=== PATIENT | male | born 1990 | race Asian ===

== ENCOUNTER 2024-04-23 07:27 | Inpatient (IN) | payer SELFPAY ==
[2024-04-23] MEDS ORDERED: Morphine 4 MG/ML VIAL ONE (08:28)
[2024-04-23] MEDS ORDERED: Ondansetron PF 4 MG/2 ML Vial ONE (08:28)
[2024-04-23] MEDS ORDERED: Pantoprazole 40 MG VIAL ONE (08:28)
[2024-04-23] MEDS ORDERED: Pantoprazole 80 MG, Admixture Fee 1 EACH in Sodium Chloride 0.9% 100 ML IVPB SCH (08:30)
[2024-04-23 09:49] LABS: Anion Gap 17 mmol/L (10-20); BUN (Urea Nitrogen) 88 mg/dL (8.9-20.6); Calc. Creatinine Clearance 0 mL/min (70-130); Carbon Dioxide 21 mmol/L (22-29); Chloride 109 mmol/L (98-107); Estimated GFR 70; Glucose 98 mg/dL (70-105); Potassium 3.7 mmol/L (3.5-5.1); Sodium 143 mmol/L (136-145)
[2024-04-23 09:57] LABS: #Basophils Less than 0.03 10x3/uL (0.0-0.2); %Eosinophils 0.8 % (0.0-10.0); %Lymphocytes 23.3 % (21.0-51.0); %Monocytes 9.7 % (0.0-10.0); %Neutrophils 65.3 % (42.0-75.0); Hematocrit 7.2 % (42.0-52.0); Hemoglobin 2.3 g/dL (14.0-18.0); Mean Corpuscular HGB CONC 31.9 g/dL (32.0-36.0); Mean Corpuscular Hemoglobin 27.1 pg (27.0-31.0); Mean Corpuscular Volume 84.7 fL (78.0-98.0); Mean Platelet Volume 11.2 fL (7.4-10.4); Platelet Count 398 10x3/uL (130-400); RBC Distribution Width 19.3 % (11.5-14.5); Red Blood Cell (RBC) Count 0.85 mill/uL (4.70-6.10)
[2024-04-23 10:04] LABS: INR-International Normal Ratio 1.3; PTT 29.9 sec (22.9-36.1); Prothrombin Time 16.3 sec (12.0-14.7)
[2024-04-23] MEDS ORDERED: Ipratropium/Albuterol 3 ML NEB NEB PRN (10:24)
[2024-04-23] MEDS ORDERED: Ondansetron PF 4 MG/2 ML Vial IVP PRN (10:24)
[2024-04-23] MEDS ORDERED: Bisacodyl 5 MG TAB PO PRN (10:24)
[2024-04-23] MEDS ORDERED: Acetaminophen 650 MG Suppository PR PRN (10:24)
[2024-04-23 10:26] LABS: Troponin I Less than 0.010 ng/mL (< 0.028)
[2024-04-23 10:27] LABS: #Basophils Less than 0.03 10x3/uL (0.0-0.2); %Basophils 0.2 % (0.0-1.0); %Eosinophils 0.8 % (0.0-10.0); %Lymphocytes 21.6 % (21.0-51.0); %Monocytes 9.4 % (0.0-10.0); %Neutrophils 67.3 % (42.0-75.0); Hematocrit 16.2 % (42.0-52.0); Hemoglobin 5.3 g/dL (14.0-18.0); Mean Corpuscular HGB CONC 32.7 g/dL (32.0-36.0); Mean Corpuscular Volume 85.7 fL (78.0-98.0); Mean Platelet Volume 10.9 fL (7.4-10.4); Platelet Count 352 10x3/uL (130-400); RBC Distribution Width 19.3 % (11.5-14.5); Red Blood Cell (RBC) Count 1.89 mill/uL (4.70-6.10)
[2024-04-23] MEDS ORDERED: NOREPINEPHRINE 8 MG/250 ML-D5W 250 ML IVPB SCH (10:30)
[2024-04-23 13:31] LABS: Troponin I 0.019 ng/mL (< 0.028)
[2024-04-23] MEDS ORDERED: Iopamidol-370 76% 500 ML MDV (1 ML CHARGE) ONE (13:55)
[2024-04-23 14:18] LABS: Hemoglobin 6.8 g/dL (14.0-18.0)
[2024-04-23] MEDS ORDERED: PROPOFOL 40 ML ONE (15:05)
[2024-04-23] MEDS ORDERED: Lidocaine 2% PF 5 ML VIAL ONE (15:05)
[2024-04-23] MEDS ORDERED: fentaNYL 50 mcg/mL 1 mL Vial ONE (15:06)
[2024-04-23] MEDS ORDERED: Etomidate 40 MG (20 mL) VIAL ONE (15:07)
[2024-04-23] MEDS ORDERED: SUCCINYLCHOLINE/SOD CL,ISO/PF 200 MG/10 ML SYRINGE FS ONE (15:17)
[2024-04-23] MEDS ORDERED: Dexamethasone 20 MG/5 ML VIAL ONE (15:17)
[2024-04-23] MEDS ORDERED: Rocuronium Bromide 10 MG/ML (10ML VIAL) ONE (15:25)
[2024-04-23] MEDS ORDERED: SUGAMMADEX SODIUM 200 MG/2 ML VIAL ONE (15:39)
[2024-04-23] MEDS ORDERED: Phenylephrine 10 MG/ML VIAL ONE (15:54)
[2024-04-23] MEDS: Pantoprazole 80 MG, Admixture Fee 1 EACH in Sodium Chloride 0.9% 100 ML IVPB SCH (17:12)
[2024-04-23 20:07] LABS: Hemoglobin 7.9 g/dL (14.0-18.0)
[2024-04-23] MEDS: Acetaminophen 325 MG TAB PO PRN (22:34)
[2024-04-24 00:54] LABS: Hematocrit 21.6 % (42.0-52.0); Hemoglobin 7.4 g/dL (14.0-18.0)
[2024-04-24] MEDS: traMADol HCl 50 MG TAB PO PRN (05:12)
[2024-04-24 05:26] LABS: #Basophils Less than 0.03 10x3/uL (0.0-0.2); #Eosinphils Less than 0.03 10x3/uL (0.0-0.7); %Basophils 0.2 % (0.0-1.0); %Lymphocytes 13.6 % (21.0-51.0); %Monocytes 2.9 % (0.0-10.0); %Neutrophils 82.5 % (42.0-75.0); Hematocrit 22.8 % (42.0-52.0); Hemoglobin 7.8 g/dL (14.0-18.0); Mean Corpuscular HGB CONC 34.2 g/dL (32.0-36.0); Mean Corpuscular Volume 87.7 fL (78.0-98.0); Mean Platelet Volume 10.4 fL (7.4-10.4); Platelet Count 248 10x3/uL (130-400); RBC Distribution Width 16.8 % (11.5-14.5)
[2024-04-24 05:40] LABS: Anion Gap 12 mmol/L (10-20); BUN (Urea Nitrogen) 61 mg/dL (8.9-20.6); Calc. Creatinine Clearance 161 mL/min (70-130); Carbon Dioxide 22 mmol/L (22-29); Chloride 115 mmol/L (98-107); Estimated GFR 86; Glucose 106 mg/dL (70-105); Potassium 3.9 mmol/L (3.5-5.1); Sodium 145 mmol/L (136-145)
[2024-04-24 10:21] LABS: Hemoglobin A1c 5.6 % (4.0-6.0)
[2024-04-24 13:46] LABS: HIV (1/2) Antibody/Antigen NONREACTIVE (NonReactive); HIV 1/2 INDEX 0.03 S/CO (<1.00)
[2024-04-24] MEDS: Furosemide 40 MG (4 mL) VIAL SLOW IVP SCH (14:32)
[2024-04-24] MEDS: Carvedilol 25 MG TAB PO SCH (17:29)
[2024-04-24] MEDS: Pantoprazole 40 MG VIAL IVP SCH (19:33)
[2024-04-25 05:57] VITALS: BMI 39.3
[2024-04-25 05:58] LABS: #Basophils Less than 0.03 10x3/uL (0.0-0.2); %Basophils 0.2 % (0.0-1.0); %Eosinophils 0.8 % (0.0-10.0); %Lymphocytes 21.9 % (21.0-51.0); %Monocytes 8.1 % (0.0-10.0); %Neutrophils 68.3 % (42.0-75.0); Hematocrit 22.3 % (42.0-52.0); Hemoglobin 7.4 g/dL (14.0-18.0); Mean Corpuscular HGB CONC 33.2 g/dL (32.0-36.0); Mean Corpuscular Volume 90.3 fL (78.0-98.0); Mean Platelet Volume 10.1 fL (7.4-10.4); Platelet Count 223 10x3/uL (130-400); RBC Distribution Width 17.2 % (11.5-14.5); Red Blood Cell (RBC) Count 2.47 mill/uL (4.70-6.10)
[2024-04-25 06:11] LABS: Anion Gap 11 mmol/L (10-20); BUN (Urea Nitrogen) 41 mg/dL (8.9-20.6); Calc. Creatinine Clearance 140 mL/min (70-130); Carbon Dioxide 23 mmol/L (22-29); Chloride 108 mmol/L (98-107); Estimated GFR 73; Glucose 90 mg/dL (70-105); Potassium 3.6 mmol/L (3.5-5.1); Sodium 138 mmol/L (136-145)
[2024-04-25] MEDS: Spironolactone 25 MG TAB PO SCH (08:30)
[2024-04-25] MEDS: Atorvastatin Calcium 40 MG TAB PO SCH (08:30)
[2024-04-25] MEDS: Triple Antibiotic Ointment 30 GM TUBE TOP SCH (22:02)
[2024-04-26 03:45] LABS: Anion Gap 12 mmol/L (10-20); BUN (Urea Nitrogen) 28 mg/dL (8.9-20.6); Calc. Creatinine Clearance 158 mL/min (70-130); Calcium 8.2 mg/dL (7.8-10.44); Carbon Dioxide 25 mmol/L (22-29); Chloride 107 mmol/L (98-107); Estimated GFR 84; Glucose 84 mg/dL (70-105); Magnesium 1.9 mg/dL (1.6-2.6); Potassium 3.5 mmol/L (3.5-5.1); Sodium 140 mmol/L (136-145)
[2024-04-26 03:50] LABS: Troponin I 0.011 ng/mL (< 0.028)
[2024-04-26] MEDS: LevoFLOXacin 500 MG TAB PO SCH (05:29)
[2024-04-26 07:20] LABS: #Basophils 0.05 10x3/uL (0.0-0.2); %Basophils 0.6 % (0.0-1.0); %Eosinophils 1.7 % (0.0-10.0); %Lymphocytes 31.7 % (21.0-51.0); %Monocytes 8.4 % (0.0-10.0); Hematocrit 25.8 % (42.0-52.0); Hemoglobin 8.4 g/dL (14.0-18.0); Mean Corpuscular HGB CONC 32.6 g/dL (32.0-36.0); Mean Corpuscular Hemoglobin 30.1 pg (27.0-31.0); Mean Corpuscular Volume 92.5 fL (78.0-98.0); Mean Platelet Volume 9.9 fL (7.4-10.4); Platelet Count 299 10x3/uL (130-400); RBC Distribution Width 17.3 % (11.5-14.5); Red Blood Cell (RBC) Count 2.79 mill/uL (4.70-6.10)
[2024-04-26] MEDS: Carvedilol 6.25 MG TAB PO SCH (08:59)
[2024-04-26] MEDS: Sodium Chloride 0.9% 500 ML IV SCH (14:39)
[2024-04-26] MEDS: Pantoprazole DR 40 MG TAB PO SCH (20:42)
[2024-04-27] MEDS: LevoFLOXacin 500 MG TAB PO SCH (05:49)
[2024-04-27 11:10] LABS: ALT (SGPT) 9 U/L (8-55); AST (SGOT) 28 U/L (5-34); Albumin 3.1 g/dL (3.5-5.0); Alkaline Phosphatase 84 U/L (40-110); Anion Gap 14 mmol/L (10-20); BUN (Urea Nitrogen) 21 mg/dL (8.9-20.6); Bilirubin, Total 1.3 mg/dL (0.2-1.2); Calc. Creatinine Clearance 132 mL/min (70-130); Calcium 8.9 mg/dL (7.8-10.44); Carbon Dioxide 26 mmol/L (22-29); Chloride 101 mmol/L (98-107); Estimated GFR 74; Globulin 3.5 g/dL (2.4-3.5); Glucose 118 mg/dL (70-105); Potassium 3.4 mmol/L (3.5-5.1); Protein, Total 6.6 g/dL (6.0-8.3); Sodium 138 mmol/L (136-145)
[2024-04-27] MEDS: Sodium Chloride 0.9% 500 ML IV SCH (14:57)
[2024-04-28 11:03] VITALS: BP 100/67; TEMP 97.5
== END 2024-04-28 14:26 | disposition home or self-care (01) | DRG 377 ==
LOC: ERS 07:27 → CCU 11:16 → T4-B 04-24 15:40
PROVIDERS: ADMIT Internal Medicine; ATTEND Internal Medicine
PROC: 0T9B70Z Drainage of Bladder with Drainage Device, Via Natural or Artificial Opening (ICD-10-PCS; principal; 2024-04-23)
PROC: 05H533Z Insertion of Infusion Device into Right Subclavian Vein, Percutaneous Approach (ICD-10-PCS; 2024-04-23)
PROC: 0W3P8ZZ Control Bleeding in Gastrointestinal Tract, Via Natural or Artificial Opening Endoscopic (ICD-10-PCS; 2024-04-23)
PROC: 30233N1 Transfusion of Nonautologous Red Blood Cells into Peripheral Vein, Percutaneous Approach (ICD-10-PCS; 2024-04-23)
PROC: 6A550Z2 Pheresis of Platelets, Single (ICD-10-PCS; 2024-04-23)
PROC: 30233K1 Transfusion of Nonautologous Frozen Plasma into Peripheral Vein, Percutaneous Approach (ICD-10-PCS; 2024-04-23)
PROC: 3E033XZ Introduction of Vasopressor into Peripheral Vein, Percutaneous Approach (ICD-10-PCS; 2024-04-23)
DX: K25.4 Chronic or unspecified gastric ulcer with hemorrhage (principal); I50.21 Acute systolic (congestive) heart failure; R57.1 Hypovolemic shock; R57.8 Other shock; D62 Acute posthemorrhagic anemia; N17.9 Acute kidney failure, unspecified; K62.6 Ulcer of anus and rectum; I42.0 Dilated cardiomyopathy; I10 Essential (primary) hypertension; N50.89 Other specified disorders of the male genital organs; K26.9 Duodenal ulcer, unspecified as acute or chronic, without hemorrhage or perforation; Z79.899 Other long term (current) drug therapy
CPT/HCPCS: 36415; 36430; 36556; 51702; 71045; 74177; 76870; 80048; 80053; 83036; 83735; 84484; 85025; 85610; 85730; 86850; 86900; 86901; 87389; 93005; 93010; 93976; 94660; 96365; 96366; 96375; 97139; 99292; C1889; J1100; J1940; J2001; J2272; J2371; J2405; J2470; J2704; J3010; J7030; P9016; P9035; P9059; Q9967

== ENCOUNTER 2024-05-06 21:24 | Emergency (ER) | payer SELFPAY ==
[2024-05-06 23:20] LABS: #Basophils 0.04 10x3/uL (0.0-0.2); %Basophils 0.6 % (0.0-1.0); %Eosinophils 5.1 % (0.0-10.0); %Lymphocytes 20.5 % (21.0-51.0); %Monocytes 10.6 % (0.0-10.0); %Neutrophils 62.9 % (42.0-75.0); Hematocrit 25.3 % (42.0-52.0); Hemoglobin 7.9 g/dL (14.0-18.0); Mean Corpuscular HGB CONC 31.2 g/dL (32.0-36.0); Mean Corpuscular Hemoglobin 27.8 pg (27.0-31.0); Mean Corpuscular Volume 89.1 fL (78.0-98.0); Mean Platelet Volume 9.8 fL (7.4-10.4); Platelet Count 307 10x3/uL (130-400); RBC Distribution Width 16.6 % (11.5-14.5); Red Blood Cell (RBC) Count 2.84 mill/uL (4.70-6.10)
[2024-05-06] MEDS ORDERED: HYDROcodone/Acetaminophen 5/325 mg Tablet ONE (23:23)
[2024-05-06 23:45] LABS: ALT (SGPT) 7 U/L (8-55); AST (SGOT) 22 U/L (5-34); Albumin 3.3 g/dL (3.5-5.0); Alkaline Phosphatase 101 U/L (40-110); Anion Gap 10 mmol/L (10-20); BUN (Urea Nitrogen) 14 mg/dL (8.9-20.6); Bilirubin, Total 0.7 mg/dL (0.2-1.2); Calc. Creatinine Clearance 0 mL/min (70-130); Calcium 9.2 mg/dL (7.8-10.44); Carbon Dioxide 30 mmol/L (22-29); Chloride 103 mmol/L (98-107); Estimated GFR 94; Globulin 3.7 g/dL (2.4-3.5); Glucose 109 mg/dL (70-105); Potassium 2.9 mmol/L (3.5-5.1); Sodium 140 mmol/L (136-145)
[2024-05-06 23:48] LABS: Troponin I Less than 0.010 ng/mL (< 0.028)
[2024-05-07] MEDS ORDERED: Furosemide 20 MG (2 mL) VIAL ONE (00:39)
[2024-05-07] MEDS ORDERED: Potassium Chloride 20 MEQ TAB ONE (00:40)
[2024-05-07] MEDS ORDERED: Furosemide 40 MG TAB ONE (00:56)
== END 2024-05-07 00:59 | disposition home or self-care (01) ==
LOC: ERS 21:24
DX: E87.6 Hypokalemia (principal); I11.0 Hypertensive heart disease with heart failure; I50.9 Heart failure, unspecified; Z79.82 Long term (current) use of aspirin; Z79.899 Other long term (current) drug therapy
CPT/HCPCS: 36415; 71045; 80053; 83735; 83880; 84145; 84484; 85025; 93005; J1940